=== PATIENT | female | born 1980 | race Caucasian/White ===

== ENCOUNTER 2024-05-18 06:10 | Day surgery (SDC) | payer MEDICAID, SELFPAY ==
[2024-05-17 08:44] VITALS: BMI 47.7
--- NOTE | 2024-05-17 08:57 | EKG_ITS ---
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
[2024-05-17 09:52] LABS: Basophils # (Auto) 0.1 Thou/mm3 (0.0-0.2); Basophils % (Auto) 0 % (0-2.5); Eosinophils # (Auto) 0.2 Thou/mm3 (0.0-0.5); Eosinophils % (Auto) 2 % (0-10); Hematocrit 38.4 % (36.0-46.0); Hemoglobin 12.2 g/dL (12.0-16.0); Immature Granulocytes % (Auto) 0 % (0-0); Immature Granulocytes Auto 0.04 Thou/mm3 (0.00-0.00); Lymphocytes # (Auto) 2.7 Thou/mm3 (1.0-4.8); Lymphocytes % (Auto) 24 % (10-50); Mean Corpuscular HGB Conc 31.8 g/dl (31.0-37.0); Mean Corpuscular Hemoglobin 25.2 pg (25.0-35.0); Mean Corpuscular Volume 79 fL (80-100); Monocytes # (Auto) 0.5 Thou/mm3 (0.0-0.8); Monocytes % (Auto) 5 % (0-12); Neutrophils # (Auto) 7.9 Thou/mm3 (1.8-7.7); Neutrophils % (Auto) 69 % (37-80); Nucleated Red Blood Cell % 0 /100 WBC (0); Platelet Count 400 Thou/mm3 (140-440); Red Blood Count 4.84 Miln/mm3 (4.00-5.20); White Blood Count 11.4 Thou/mm3 (3.6-11.0)
[2024-05-17 10:10] LABS: Alanine Aminotransferase 16 U/L (10-49); Albumin, Serum 4.7 gm/dL (3.5-5.0); Albumin/Globulin Ratio 1.6 (1.2-2.2); Alkaline Phosphatase 95 U/L (46-116); Anion Gap 8 (7-16); Aspartate Amino Transferase 14 U/L (0-34); BUN/Creatinine Ratio 18 Ratio (12-20); Bilirubin,Total 0.3 mg/dL (0.3-1.2); Blood Urea Nitrogen 14 mg/dL (9-23); Calcium 9.6 mg/dL (8.3-10.6); Calcium (Corrected) 9.6 mg/dL (8.5-10.1); Carbon Dioxide 29.1 mMol/L (20.0-31.0); Chloride 103 mMol/L (98-107); Creatinine (Component) 0.8 mg/dL (0.6-1.3); Glucose 99 mg/dL (74-106); Osmolality,Calculated 279 (275-295); Potassium 3.7 mMol/L (3.4-5.1); Sodium 140 mMol/L (136-145); Total Protein 7.7 gm/dL (5.7-8.2); eGFR > 60 See Note
[2024-05-17 10:12] LABS: HCG,Qualitative Serum Negative
[2024-05-17 12:35] LABS: HIV (1&2) Antibody Rapid Non-Reactive
[2024-05-18] VITALS (10 sets, daily range): BP systolic 112–180; BP diastolic 64–114; PULSE 77–101; RESP 15–20; TEMP 36.4–36.8; O2SAT 95–100; BMI 47.5
[2024-05-18 02:07] LABS: Hepatitis A Antibody IgM Non Reactive (Non React); Hepatitis B Core Antibody IgM Non Reactive (Non React); Hepatitis B Surface Antigen Non Reactive (Non React); Hepatitis C Antibody Non Reactive (Non React)
--- NOTE | 2024-05-18 07:59 | PD.GYNHP ---
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 LOVE is a 44 year old female admitted for laparoscopic bilateral salpingectomy as she desired sterilization patient has been thoroughly counseled about alternatives to sterilization including long-acting reversible contraception however the patient desires for permanent control measure Meds Home Medications and Allergies Home Medications ?Medication ?Instructions ?Recorded ?Confirmed ?Type buspirone 5 mg tablet 5 mg PO DAILY 05/17/24 05/17/24 History fluconazole 200 mg tablet 200 mg PO QWEEK 05/17/24 05/17/24 History gabapentin 600 mg tablet 600 mg PO QDAY 05/17/24 05/17/24 History losartan 50 mg tablet 50 mg PO QDAY 05/17/24 05/17/24 History magnesium 250 mg tablet 250 mg PO QDAY 05/17/24 05/17/24 History omeprazole 40 mg capsule,delayed 40 mg PO QDAY 05/17/24 05/17/24 History release venlafaxine 100 mg tablet 100 mg PO QDAY 05/17/24 05/17/24 History venlafaxine 25 mg tablet 25 mg PO QDAY 05/17/24 05/17/24 History Allergies Allergy/AdvReac Type Severity Reaction Status Date / Time erythromycin base Allergy Intermediate Rash Verified 05/18/24 06:50 latex Allergy Intermediate Swelling Verified 05/18/24 06:50 of Lip/Tongue/Throat Exam - CASKET INSPECTOR Vital Signs Temp Pulse Resp BP Pulse Ox 97.6 F 77 15 143/94 H 95 05/18/24 06:50 05/18/24 06:50 05/18/24 06:50 05/18/24 06:50 05/18/24 06:50 Constitutional Constitutional: no acute distress Routine HEENT Exam Head: Present normocephalic and atraumatic Eye: Present EOMI and PERRL ENT: Present mucous membranes moist Routine Neck Exam Neck: Present supple and trachea midline Routine Respiratory Exam Respiratory: Present chest non-tender, lungs clear, normal breath sounds and no resp distress Routine Cardiovascular Exam Cardiovascular: Present RRR Routine Abdominal Exam Abdominal: Present soft and normoactive bowel sounds Routine Extremities Exam Extremities: Present full ROM Routine Skin Exam Skin: Present intact and dry Routine Neurological Exam Neurological: Present alert, oriented X3 and CN II-XII intact Routine Psychiatric Exam Psychiatric: Present normal affect and normal thought process CASKET INSPECTOR - Results Labs 05/17/24 09:09 05/17/24 09:09 Labs: Short CBC 05/17/24 Range/Units 09:09 WBC 11.4 H (3.6-11.0) Thou/mm3 Hgb 12.2 (12.0-16.0) g/dL Hct 38.4 (36.0-46.0) % Plt Count 400 (140-440) Thou/mm3 BMP 05/17/24 09:09 Sodium 140 Potassium 3.7 Chloride 103 Carbon Dioxide 29.1 BUN 14 Creatinine 0.8 Glucose 99 Calcium 9.6 Liver Function 05/17/24 Range/Units 09:09 Total Bilirubin 0.3 (0.3-1.2) mg/dL AST 14 (0-34) U/L ALT 16 (10-49) U/L Alkaline Phosphatase 95 (46-116) U/L Albumin 4.7 (3.5-5.0) gm/dL Impressions Impression: 44-year-old admitted for laparoscopic bilateral salpingectomy Desires sterilization Counseled thoroughly about alternatives of long-acting reversible contraception Risks including anesthesia, injury to the bladder, bowel, infection, hemorrhage was explained to the patient Assessment and Plan Additional Assessment & Plan Additional Plan: Admitted for laparoscopic bilateral salpingectomy Quality Measures Quality Measures VTE prophylaxis
--- NOTE | 2024-05-18 10:17 | PD.GYNPROC ---
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 General anesthesia was given without any complications.? A time out was given confirming Hector Torres was undergoing the following, procedure,allergies, and surgeon.The patient was positioned in the dorsal lithotomy position. The bladder was emptied. The perineum was prepped with Betadine solution per routine.The abdomen was prepped with DuraPrep.Attention was then focused to the vagina.? A sponge placed in a ring forceps was placed in the posterior fornix and used as a uterine manipulator.? The surgeon then changed gloves to continue proper sterile technique. Attention was diverted to the abdomen. An umblical incision was first made, Two towel clips were placed lateral to the umbilicus in order to elevate the abdominal wall.? A hemostat was used to assess the depth to the fascia. While applying countertraction by lifting the towel clips, a Veress needle was used to enter the peritoneal cavity, a initial abdominal pressure of 12 mmHg was noted upon entry. Veress needle used for initial pneumoperitoneum establishment. 5 mm port used for the direct trocar entry the abdomen was then insufflated with CO2 gas to 15mmHg, under the opti-view system was advanced into the peritoneal entry.? The rt lower quadrant was evaluated and a 5-mm incision was made . 5-mm trocar placed under camera surveillance.? Left side evaluated and a 5mm trocar inserted under optiview surveillance. On observation: Peritoneal omental fat covering the pelvic region. Laparoscopic [place] was used to grasp the peritoneal omental fat and retracted so that pelvis is visible. In order to manipulate the bowels and the fact fourth laparoscopic port was done on the right side Normal anatomy with bilateral ovaries and tubes no peritoneal pathology identified. Using a laparoscopic [place] grasper, gently right tube at the fimbrial end was picked up. Gradually , her right and left tube was from the mesosalpinx using Enseal device. Bilateral salpingectomy done, hemostasis ensured. All the bowel at the initial trocar entry point was examined no entry injuries were noted Estimated blood loss (ml): 5 Estimated blood loss (ml): 5 Surgical staff Operation Date: 05/18/24 08:45 Case Staff SCREEN PRINTING MACHINE OPERATOR: Javon Thomas RN First Assistant: Pushpa Drummond Diagnosis Problem List Completed Was Problem List Reviewed/Reconciled?: Yes
[2024-05-18] MEDS: HYDROmorphone INJ 2 MG/ML VIAL 0.4 MG IVP (10:32)
[2024-05-18] MEDS: KETOROLAC INJ 30 MG/ML VIAL IVP (10:34)
[2024-05-18] MEDS: ONDANSETRON INJ 2 MG/ML INJ 2 ML 4 MG IV (10:46)
--- NOTE | 2024-05-18 11:22 | SUR.PHASEII ---
1122 Patient meets discharge criteria from recovery, awake and alert, breathing unlabored, vital signs stable, per patient her pain is tolerable, dressing intact; no bleeding noted, patient voided in the restroom prior to discharge, patient assisted with dressing into her clothing by her friend, patient eating ice chips; tolerating well, discharge instructions given to patient and patients friend, friend signed discharge instructions. Patient given all her belongings prior to discharge, transported via wheelchair and left in a private vehicle.
== END 2024-05-18 11:22 | disposition home or self-care (01) ==
PROVIDERS: Anesthesiology; PCP Physician Assistant; Referring Provider Student in an Organized Health Care Education/Training Program; Visit Provider Student in an Organized Health Care Education/Training Program
PROC: (CPT 58670; principal; 2024-05-18 08:30)
DX: Z30.2 Encounter for sterilization (principal); E66.01 Morbid (severe) obesity due to excess calories; Z01.810 Encounter for preprocedural cardiovascular examination; Z68.42 Body mass index [BMI] 45.0-49.9, adult
CPT/HCPCS: 58661; 36415; 80053; 80074; 84703; 85025; 86703; 86850; 86900; 86901; 93005; A4217; A4649; J0131; J0360; J1885; J2250; J2405; J2704; J3010; J3490; J1596